=== PATIENT | male | born 1970 | race African-American/Black ===

== ENCOUNTER 2024-02-27 12:11 | Inpatient (IN) | payer OTHER ==
[2024-02-27 12:50] VITALS: BMI 30.8
[2024-02-27] MEDS ORDERED: LOPERAMIDE HCL 2 MG CAPSULE PO PRN (14:41)
[2024-02-27] MEDS ORDERED: POLYETHYLENE GLYCOL (HEALTHYLAX) 3350 17 GM PACKET PO PRN (14:41)
[2024-02-27] MEDS ORDERED: NICOTINE POLACRILEX 4 MG GUM BUC PRN (14:41)
[2024-02-27] MEDS ORDERED: IBUPROFEN 600 MG TABLET (FP) PO PRN (14:41)
[2024-02-27] MEDS ORDERED: IBUPROFEN 400 MG TABLET (FP) PO PRN (14:41)
[2024-02-27] MEDS ORDERED: BENZOCAINE/MENTHOL (CHLORASEPTIC ) LOZENGE MM PRN (14:41)
[2024-02-27] MEDS ORDERED: ACETAMINOPHEN 325 MG TABLET (FP) PO PRN (14:41)
[2024-02-27] MEDS ORDERED: ONDANSETRON *ODT* 4 MG TABLET SL PRN (14:41)
[2024-02-27] MEDS ORDERED: NALOXONE (NARCAN) HCL 4 MG/0.1 ML SPRAY NS PRN (14:41)
[2024-02-27] MEDS ORDERED: MAGNESIUM HYDROX 2400MG/30ML ORAL SUSPENSION 30 ML CUP PO PRN (14:41)
[2024-02-27] MEDS ORDERED: guaiFENesin 600 MG TABLET.ER (FP) PO PRN (14:41)
[2024-02-27] MEDS ORDERED: BISMUTH SUBSALICYLATE 524 MG/30 ML PO PRN (14:41)
[2024-02-27] MEDS ORDERED: MAG HYDROX/AL HYDROX/SIMETH 30 ML UNIT-DOSE CUP PO PRN (14:41)
[2024-02-27] MEDS ORDERED: DICYCLOMINE HCL 10 MG CAPSULE PO PRN (14:41)
[2024-02-27] MEDS ORDERED: BENZONATATE 200 MG CAPSULE PO PRN (14:41)
[2024-02-27] MEDS ORDERED: NICOTINE 21 MG/24 HOURS TOPICAL PATCH ONE (15:03)
[2024-02-27] MEDS ORDERED: PRENATAL VITAMINS W/ FOLIC ACID TABLET (FP) PO ONE (15:04)
[2024-02-27] MEDS: NICOTINE 21 MG/24 HOURS TOPICAL PATCH TD SCH (15:06)
[2024-02-27] MEDS: PRENATAL VITAMINS W/ FOLIC ACID TABLET (FP) PO SCH (15:07)
[2024-02-27] MEDS: chlordiazePOXIDE HCL 25 MG CAPSULE PO PRN (15:43)
[2024-02-27] MEDS: APIXABAN 5 MG TABLET PO SCH ×2 (15:50→22:20)
[2024-02-27] MEDS: chlordiazePOXIDE HCL 25 MG CAPSULE PO SCH (17:08)
[2024-02-27] MEDS: METHOCARBAMOL 500 MG TABLET PO PRN (17:14)
[2024-02-27] MEDS: THIAMINE 100 MG TABLET PO SCH (22:20)
[2024-02-27] MEDS: levETIRAcetam 500 MG TABLET (FP) PO SCH (22:20)
[2024-02-27] MEDS: amLODIPine BESYLATE 10 MG TABLET (FP) PO ONE (22:21)
[2024-02-27] MEDS: MELATONIN 5 MG TABLETS PO SCH (22:24)
[2024-02-28] MEDS: hydrOXYzine PAMOATE 25 MG CAPSULE (FP) PO PRN (05:29)
[2024-02-28] MEDS: ATORVASTATIN CA 10 MG TABLET (FP) PO SCH (10:26)
[2024-02-28] MEDS: LISINOPRIL 10 MG TABLET PO SCH (10:26)
[2024-02-28 16:16] LABS: CALCIUM 8.8 mg/dL (8.5-10.1)
[2024-02-28 16:17] LABS: BLOOD UREA NITROGEN 15.2 mg/dL (7-18); INR 1.04 (0.83-1.09); PROTHROMBIN TIME (PATIENT) 11.9 SEC (9.7-13.0)
[2024-02-28 16:19] LABS: HEMATOCRIT 42.7 % (35.4-49); HEMOGLOBIN 14.1 GM/dL (11.7-16.9); MCH 31.3 pg (25.7-33.7); MCHC 33.1 g/dl (32.0-35.9); MEAN CELL VOLUME 94.8 fl (80-96); MEAN PLT VOLUME 9.5 fl (7.5-11.1); PLATELET COUNT 171 10^3/uL (134-434); RBC 4.51 M/mm3 (4.00-5.60); RDW 15.1 % (11.9-15.9); WHITE BLOOD COUNT 4.5 K/mm3 (4.0-10.0)
[2024-02-28 16:22] LABS: BILIRUBIN,TOTAL 0.3 mg/dL (0.2-1); TOT PROT 6.1 g/dl (6.4-8.2)
[2024-02-29] MEDS: chlordiazePOXIDE HCL 25 MG CAPSULE PO SCH (05:28)
[2024-03-01] MEDS ORDERED: chlordiazePOXIDE HCL 10 MG CAPSULE PO PRN
[2024-03-01] MEDS: chlordiazePOXIDE HCL 10 MG CAPSULE PO SCH (05:34)
[2024-03-02] MEDS: chlordiazePOXIDE HCL 10 MG CAPSULE PO SCH (05:24)
[2024-03-03] MEDS: chlordiazePOXIDE HCL 10 MG CAPSULE PO ONE (05:21)
[2024-03-03] MEDS: MIRTAZAPINE 15 MG TABLET (FP) PO SCH (09:18)
[2024-03-03] MEDS: NALOXONE (NYS OPIOID OVERDOSE PROGRAM) 4 MG/0.1 ML SPRAY NS SCH (10:48)
[2024-03-03 16:42] VITALS: RESP 18
[2024-03-04 09:35] VITALS: BP 175/95; PULSE 71; TEMP 97.7
== END 2024-03-04 11:20 | disposition other institution (70) | DRG 773 ==
LOC: YASAS 12:11 → Y6N 14:54
PROVIDERS: ADMIT Allergy & Immunology; ATTEND Surgery
PROC: HZ2ZZZZ Detoxification Services for Substance Abuse Treatment (ICD-10-PCS; principal; 2024-02-27)
DX: F10.230 Alcohol dependence with withdrawal, uncomplicated (principal); F11.10 Opioid abuse, uncomplicated; F12.20 Cannabis dependence, uncomplicated; F17.210 Nicotine dependence, cigarettes, uncomplicated; F19.94 Other psychoactive substance use, unspecified with psychoactive substance-induced mood disorder; F19.982 Other psychoactive substance use, unspecified with psychoactive substance-induced sleep disorder; F19.980 Other psychoactive substance use, unspecified with psychoactive substance-induced anxiety disorder; I10 Essential (primary) hypertension; E78.5 Hyperlipidemia, unspecified; G40.909 Epilepsy, unspecified, not intractable, without status epilepticus; I48.91 Unspecified atrial fibrillation; Z86.19 Personal history of other infectious and parasitic diseases; Z56.0 Unemployment, unspecified; Z59.02 Unsheltered homelessness
CPT/HCPCS: 36415; 80053; 80177; 80305; 80307; 85027; 85610; 86593; 86780; 93005; 93010

== ENCOUNTER 2024-03-04 11:39 | Inpatient (IN) | payer OTHER ==
[2024-03-04] MEDS ORDERED: IBUPROFEN 600 MG TABLET (FP) PO PRN (16:30)
[2024-03-04] MEDS ORDERED: POLYETHYLENE GLYCOL (HEALTHYLAX) 3350 17 GM PACKET PO PRN (16:30)
[2024-03-04] MEDS ORDERED: MAG HYDROX/AL HYDROX/SIMETH 30 ML UNIT-DOSE CUP PO PRN (16:30)
[2024-03-04] MEDS ORDERED: hydrOXYzine PAMOATE 25 MG CAPSULE (FP) PO PRN (16:30)
[2024-03-04] MEDS ORDERED: ACETAMINOPHEN 325 MG TABLET (FP) PO PRN (16:30)
[2024-03-04] MEDS ORDERED: IBUPROFEN 400 MG TABLET (FP) PO PRN (16:30)
[2024-03-04] MEDS ORDERED: LOPERAMIDE HCL 2 MG CAPSULE PO PRN (16:30)
[2024-03-04] MEDS ORDERED: NALOXONE HCL 0.4 MG/ML VIAL IVPUSH PRN (16:30)
[2024-03-04] MEDS ORDERED: BENZOCAINE/MENTHOL (CHLORASEPTIC ) LOZENGE MM PRN (16:30)
[2024-03-04] MEDS ORDERED: guaiFENesin 600 MG TABLET.ER (FP) PO PRN (16:30)
[2024-03-04] MEDS ORDERED: BENZONATATE 200 MG CAPSULE PO PRN (16:30)
[2024-03-04] MEDS ORDERED: MAGNESIUM HYDROX 2400MG/30ML ORAL SUSPENSION 30 ML CUP PO PRN (16:30)
[2024-03-04] MEDS ORDERED: NALOXONE (NARCAN) HCL 4 MG/0.1 ML SPRAY NS PRN (16:30)
[2024-03-04] MEDS: METHOCARBAMOL 500 MG TABLET PO PRN (17:50)
[2024-03-04] MEDS: APIXABAN 5 MG TABLET PO SCH (22:48)
[2024-03-04] MEDS: MIRTAZAPINE 15 MG TABLET (FP) PO SCH (22:48)
[2024-03-04] MEDS: levETIRAcetam 500 MG TABLET (FP) PO SCH (22:48)
[2024-03-04] MEDS: THIAMINE 100 MG TABLET PO SCH (22:51)
[2024-03-04] MEDS: MELATONIN 5 MG TABLETS PO SCH (22:51)
[2024-03-05 06:25] VITALS: TEMP 97.7
[2024-03-05 09:02] VITALS: BP 130/67; PULSE 60; RESP 16
[2024-03-05] MEDS: PRENATAL VITAMINS W/ FOLIC ACID TABLET (FP) PO SCH (09:32)
[2024-03-05] MEDS: amLODIPine BESYLATE 10 MG TABLET (FP) PO SCH (09:34)
[2024-03-05] MEDS: ATORVASTATIN CA 10 MG TABLET (FP) PO SCH (09:34)
[2024-03-05] MEDS: LISINOPRIL 10 MG TABLET PO SCH (09:34)
[2024-03-05] MEDS: NALOXONE (NYS OPIOID OVERDOSE PROGRAM) 4 MG/0.1 ML SPRAY NS SCH (12:28)
[2024-03-05] MEDS ORDERED: NALOXONE (NYS OPIOID OVERDOSE PROGRAM) 4 MG/0.1 ML SPRAY NS SCH (13:45)
== END 2024-03-05 12:37 | disposition left against medical advice (07) | DRG 770 ==
LOC: YASAS 11:39 → Y3NR 11:40 → Y3W 03-05 11:14
PROVIDERS: ADMIT Psychiatry & Neurology Pain Medicine; ATTEND Psychiatry & Neurology Pain Medicine
PROC: HZ42ZZZ Group Counseling for Substance Abuse Treatment, Cognitive-Behavioral (ICD-10-PCS; principal; 2024-03-04)
DX: F10.20 Alcohol dependence, uncomplicated (principal); F11.20 Opioid dependence, uncomplicated; F12.20 Cannabis dependence, uncomplicated; F17.210 Nicotine dependence, cigarettes, uncomplicated; F41.9 Anxiety disorder, unspecified; F33.9 Major depressive disorder, recurrent, unspecified; F19.982 Other psychoactive substance use, unspecified with psychoactive substance-induced sleep disorder; I10 Essential (primary) hypertension; E78.5 Hyperlipidemia, unspecified; G40.909 Epilepsy, unspecified, not intractable, without status epilepticus; I48.91 Unspecified atrial fibrillation; Z79.01 Long term (current) use of anticoagulants; Z59.00 Homelessness unspecified
CPT/HCPCS: 36415; 86803

== ENCOUNTER 2024-07-06 21:09 | Inpatient (IN) | payer OTHER ==
[2024-07-06 21:32] VITALS: BMI 27.8
[2024-07-06] MEDS ORDERED: LOPERAMIDE HCL 2 MG CAPSULE PO PRN (22:14)
[2024-07-06] MEDS ORDERED: MAG HYDROX/AL HYDROX/SIMETH 30 ML UNIT-DOSE CUP PO PRN (22:14)
[2024-07-06] MEDS ORDERED: POLYETHYLENE GLYCOL (HEALTHYLAX) 3350 17 GM PACKET PO PRN (22:14)
[2024-07-06] MEDS ORDERED: ONDANSETRON *ODT* 4 MG TABLET SL PRN (22:14)
[2024-07-06] MEDS ORDERED: guaiFENesin 600 MG TABLET.ER (FP) PO PRN (22:14)
[2024-07-06] MEDS ORDERED: NICOTINE POLACRILEX 2 MG LOZENGE BC PRN (22:14)
[2024-07-06] MEDS ORDERED: hydrOXYzine PAMOATE 25 MG CAPSULE (FP) PO PRN (22:14)
[2024-07-06] MEDS ORDERED: MAGNESIUM HYDROX 2400MG/30ML ORAL SUSPENSION 30 ML CUP PO PRN (22:14)
[2024-07-06] MEDS ORDERED: NALOXONE (NARCAN) HCL 4 MG/0.1 ML SPRAY NS PRN (22:14)
[2024-07-06] MEDS ORDERED: NICOTINE POLACRILEX 2 MG GUM BUC PRN (22:14)
[2024-07-06] MEDS ORDERED: BENZONATATE 200 MG CAPSULE PO PRN (22:14)
[2024-07-06] MEDS ORDERED: BENZOCAINE/MENTHOL (CHLORASEPTIC ) LOZENGE MM PRN (22:14)
[2024-07-06] MEDS ORDERED: DICYCLOMINE HCL 10 MG CAPSULE PO PRN (22:14)
[2024-07-06] MEDS ORDERED: chlordiazePOXIDE HCL 25 MG CAPSULE PO PRN (22:21)
[2024-07-06] MEDS ORDERED: chlordiazePOXIDE HCL 25 MG CAPSULE ONE (23:03)
[2024-07-06] MEDS ORDERED: levETIRAcetam 500 MG TABLET (FP) PO ONE (23:04)
[2024-07-06] MEDS ORDERED: MELATONIN 5 MG TABLETS ONE (23:04)
[2024-07-06] MEDS: chlordiazePOXIDE HCL 25 MG CAPSULE PO SCH (23:08)
[2024-07-06] MEDS: levETIRAcetam 500 MG TABLET (FP) PO SCH (23:08)
[2024-07-06] MEDS: amLODIPine BESYLATE 5 MG TABLET (FP) PO ONE (23:43)
[2024-07-06] MEDS: ASPIRIN COATED 81 MG TABLET.EC PO ONE (23:48)
[2024-07-06] MEDS: ASPIRIN 325 MG ENTERIC COATED TABLET (FP) PO ONE (23:49)
[2024-07-07] MEDS: PRENATAL VITAMINS W/ FOLIC ACID TABLET (FP) PO SCH (10:19)
[2024-07-07] MEDS: ASPIRIN COATED 81 MG TABLET.EC PO SCH (10:20)
[2024-07-07 11:27] LABS: HEMATOCRIT 40.6 % (40.1-51.0); HEMOGLOBIN 13.7 g/dL (13.7-17.5); MCHC 33.7 g/dl (32.3-36.5); MEAN CELL VOLUME 92.9 fl (79.0-92.2); MEAN PLT VOLUME 11.2 fl (9.4-12.4); PLATELET COUNT 175 x10^3/uL (163-337); RDW 13.5 % (12.2-16.1)
[2024-07-07 11:29] LABS: POTASSIUM 3.5 mmol/L (3.5-5.1)
[2024-07-07 11:37] LABS: BLOOD UREA NITROGEN 15.9 mg/dL (7-18); CALCIUM 9.2 mg/dL (8.5-10.1)
[2024-07-07 11:42] LABS: CREATININE 0.9 mg/dL (0.55-1.3)
[2024-07-07 11:43] LABS: BILIRUBIN,TOTAL 0.6 mg/dL (0.2-1)
[2024-07-07] MEDS: LISINOPRIL 10 MG TABLET PO SCH (14:48)
[2024-07-07] MEDS: APIXABAN 5 MG TABLET PO ONE (14:48)
[2024-07-07] MEDS: ATORVASTATIN CA 10 MG TABLET (FP) PO SCH (14:48)
[2024-07-07] MEDS: LIDOCAINE 5% TOPICAL PATCH TP SCH (15:50)
[2024-07-07] MEDS: THIAMINE 100 MG TABLET PO SCH (22:21)
[2024-07-07] MEDS: APIXABAN 5 MG TABLET PO SCH (22:21)
[2024-07-07] MEDS: MELATONIN 5 MG TABLETS PO SCH (22:21)
[2024-07-07] MEDS: LIDOCAINE PATCH REMOVAL MC SCH (22:23)
[2024-07-08] MEDS: chlordiazePOXIDE HCL 25 MG CAPSULE PO SCH (05:24)
[2024-07-08] MEDS: VITAMINS A AND D TOPICAL OINTMENT TP SCH (17:30)
[2024-07-08] MEDS: MIRTAZAPINE 15 MG TABLET (FP) PO SCH (22:17)
[2024-07-08] MEDS: METHOCARBAMOL 500 MG TABLET PO PRN (23:30)
[2024-07-08] MEDS: ACETAMINOPHEN 325 MG TABLET (FP) PO PRN (23:30)
[2024-07-09] MEDS ORDERED: chlordiazePOXIDE HCL 10 MG CAPSULE PO PRN
[2024-07-09] MEDS: chlordiazePOXIDE HCL 10 MG CAPSULE PO SCH (05:55)
[2024-07-09 12:30] VITALS: BP 149/85; PULSE 63; RESP 18; TEMP 97.3
[2024-07-10] MEDS ORDERED: chlordiazePOXIDE HCL 10 MG CAPSULE PO SCH (05:00)
[2024-07-11] MEDS ORDERED: chlordiazePOXIDE HCL 10 MG CAPSULE PO ONE (05:00)
== END 2024-07-09 12:45 | disposition home or self-care (01) | DRG 774 ==
LOC: YASAS 21:09 → Y3N 22:46
PROVIDERS: ADMIT Allergy & Immunology; ATTEND Allergy & Immunology
PROC: HZ2ZZZZ Detoxification Services for Substance Abuse Treatment (ICD-10-PCS; principal; 2024-07-06)
DX: F10.230 Alcohol dependence with withdrawal, uncomplicated (principal); F14.20 Cocaine dependence, uncomplicated; F12.20 Cannabis dependence, uncomplicated; F17.210 Nicotine dependence, cigarettes, uncomplicated; E78.5 Hyperlipidemia, unspecified; G47.00 Insomnia, unspecified; I48.91 Unspecified atrial fibrillation; I10 Essential (primary) hypertension; R26.89 Other abnormalities of gait and mobility; Z86.73 Personal history of transient ischemic attack (TIA), and cerebral infarction without residual deficits; Z79.01 Long term (current) use of anticoagulants; Z56.0 Unemployment, unspecified; Z59.00 Homelessness unspecified
CPT/HCPCS: 36415; 80053; 80305; 80307; 85027; 86593; 86780; 93005; 93010

== ENCOUNTER 2024-08-10 12:02 | Inpatient (IN) | payer OTHER ==
[2024-08-10 12:38] VITALS: BMI 25.7
[2024-08-10] MEDS ORDERED: chlordiazePOXIDE HCL 25 MG CAPSULE PO PRN (13:08)
[2024-08-10] MEDS ORDERED: LOPERAMIDE HCL 2 MG CAPSULE PO PRN (13:08)
[2024-08-10] MEDS ORDERED: BENZOCAINE/MENTHOL (CHLORASEPTIC ) LOZENGE MM PRN (13:08)
[2024-08-10] MEDS ORDERED: ACETAMINOPHEN 325 MG TABLET (FP) PO PRN (13:08)
[2024-08-10] MEDS ORDERED: BENZONATATE 200 MG CAPSULE PO PRN (13:08)
[2024-08-10] MEDS ORDERED: MAG HYDROX/AL HYDROX/SIMETH 30 ML UNIT-DOSE CUP PO PRN (13:08)
[2024-08-10] MEDS ORDERED: MAGNESIUM HYDROX 2400MG/30ML ORAL SUSPENSION 30 ML CUP PO PRN (13:08)
[2024-08-10] MEDS ORDERED: POLYETHYLENE GLYCOL (HEALTHYLAX) 3350 17 GM PACKET PO PRN (13:08)
[2024-08-10] MEDS ORDERED: NALOXONE (NARCAN) HCL 4 MG/0.1 ML SPRAY NS PRN (13:08)
[2024-08-10] MEDS ORDERED: NICOTINE POLACRILEX 2 MG GUM BUC PRN (13:08)
[2024-08-10] MEDS ORDERED: DICYCLOMINE HCL 10 MG CAPSULE PO PRN (13:08)
[2024-08-10] MEDS ORDERED: guaiFENesin 600 MG TABLET.ER (FP) PO PRN (13:08)
[2024-08-10] MEDS ORDERED: IBUPROFEN 600 MG TABLET (FP) PO PRN (13:08)
[2024-08-10] MEDS ORDERED: IBUPROFEN 400 MG TABLET (FP) PO PRN (13:08)
[2024-08-10] MEDS ORDERED: ONDANSETRON *ODT* 4 MG TABLET SL PRN (13:08)
[2024-08-10] MEDS ORDERED: BISMUTH SUBSALICYLATE 524 MG/30 ML PO PRN (13:08)
[2024-08-10] MEDS: METHOCARBAMOL 500 MG TABLET PO PRN (15:59)
[2024-08-10] MEDS: hydrOXYzine PAMOATE 25 MG CAPSULE (FP) PO PRN (16:00)
[2024-08-10] MEDS: chlordiazePOXIDE HCL 25 MG CAPSULE PO SCH (18:14)
[2024-08-10] MEDS: THIAMINE 100 MG TABLET PO SCH (23:04)
[2024-08-10] MEDS: MELATONIN 5 MG TABLETS PO SCH (23:04)
[2024-08-10] MEDS: levETIRAcetam 500 MG TABLET (FP) PO SCH (23:04)
[2024-08-10] MEDS: APIXABAN 5 MG TABLET PO SCH (23:04)
[2024-08-10] MEDS: ATORVASTATIN CA 10 MG TABLET (FP) PO SCH (23:04)
[2024-08-10] MEDS: BRIMONIDINE TARTRATE 0.2% OPHTHALMIC 5 ML BOTTLE OU SCH (23:34)
[2024-08-10] MEDS: DORZOLAMIDE HCL/TIMOLOL OPHTHALMIC SOLUTION 10 ML BOTTLE OU SCH (23:34)
[2024-08-11] MEDS: PRENATAL VITAMINS W/ FOLIC ACID TABLET (FP) PO SCH (10:12)
[2024-08-11] MEDS: LISINOPRIL 10 MG TABLET PO SCH (10:13)
[2024-08-11 15:00] LABS: HEMATOCRIT 42.9 % (40.1-51.0); MCHC 32.6 g/dl (32.3-36.5); MEAN CELL VOLUME 94.1 fl (79.0-92.2); MEAN PLT VOLUME 11.2 fl (9.4-12.4); PLATELET COUNT 208 x10^3/uL (163-337); RDW 12.4 % (12.2-16.1)
[2024-08-11 15:03] LABS: CHLORIDE 111 mmol/L (98-107); POTASSIUM 4.3 mmol/L (3.5-5.1); SODIUM 144 mmol/L (136-145)
[2024-08-11 15:08] LABS: ALBUMIN 3.1 g/dl (3.4-5.0); ANION GAP 5 mmol/L (4-13); BLOOD UREA NITROGEN 18.5 mg/dL (7-18); CO2 28 mmol/L (21-32); GLUCOSE,RANDOM 87 mg/dL (74-106)
[2024-08-11 15:11] LABS: CREATININE 0.9 mg/dL (0.55-1.3); SGOT/AST 17 U/L (15-37); SGPT/ALT 36 U/L (13-61)
[2024-08-11 15:12] LABS: BILIRUBIN,TOTAL 0.4 mg/dL (0.2-1)
[2024-08-11 15:13] LABS: ALK PHOS 138 U/L (45-117); CALCIUM 8.6 mg/dL (8.5-10.1)
[2024-08-12] MEDS: chlordiazePOXIDE HCL 25 MG CAPSULE PO SCH (05:42)
[2024-08-12] MEDS ORDERED: cloNIDine HCL 0.1 MG TABLET PO PRN (11:08)
[2024-08-12] MEDS: HYDROCHLOROTHIAZIDE 25 MG TABLET (FP) PO SCH (11:42)
[2024-08-12] MEDS: MIRTAZAPINE 15 MG TABLET (FP) PO SCH (22:52)
[2024-08-13] MEDS ORDERED: chlordiazePOXIDE HCL 10 MG CAPSULE PO PRN
[2024-08-13] MEDS: chlordiazePOXIDE HCL 10 MG CAPSULE PO SCH (05:54)
[2024-08-14] MEDS: chlordiazePOXIDE HCL 10 MG CAPSULE PO SCH (05:49)
[2024-08-15] MEDS: chlordiazePOXIDE HCL 10 MG CAPSULE PO ONE (06:00)
[2024-08-15 09:47] VITALS: BP 142/91; PULSE 88; RESP 20; TEMP 97.5
== END 2024-08-15 10:15 | disposition home or self-care (01) | DRG 774 ==
LOC: YASAS 12:02 → Y3N 14:18
PROVIDERS: ADMIT Allergy & Immunology; ATTEND Allergy & Immunology
PROC: HZ2ZZZZ Detoxification Services for Substance Abuse Treatment (ICD-10-PCS; principal; 2024-08-10)
DX: F10.230 Alcohol dependence with withdrawal, uncomplicated (principal); F14.10 Cocaine abuse, uncomplicated; F12.20 Cannabis dependence, uncomplicated; F17.210 Nicotine dependence, cigarettes, uncomplicated; F19.24 Other psychoactive substance dependence with psychoactive substance-induced mood disorder; E78.5 Hyperlipidemia, unspecified; G47.00 Insomnia, unspecified; H40.9 Unspecified glaucoma; I10 Essential (primary) hypertension; I48.91 Unspecified atrial fibrillation; Z79.01 Long term (current) use of anticoagulants; R56.9 Unspecified convulsions; Z59.00 Homelessness unspecified; Z56.0 Unemployment, unspecified
CPT/HCPCS: 36415; 80053; 80305; 80307; 85027; 86593; 86780; 93005; 93010

== ENCOUNTER 2025-01-15 06:44 | Inpatient (IN) | payer OTHER ==
[2025-01-15 07:01] VITALS: BMI 27.6
[2025-01-15] MEDS ORDERED: MAG HYDROX/AL HYDROX/SIMETH 30 ML UNIT-DOSE CUP PO PRN (07:41)
[2025-01-15] MEDS ORDERED: BISMUTH SUBSALICYLATE 524 MG/30 ML PO PRN (07:41)
[2025-01-15] MEDS ORDERED: DICYCLOMINE HCL 10 MG CAPSULE PO PRN (07:41)
[2025-01-15] MEDS ORDERED: NICOTINE POLACRILEX 2 MG GUM BUC PRN (07:41)
[2025-01-15] MEDS ORDERED: IBUPROFEN 400 MG TABLET (FP) PO PRN (07:41)
[2025-01-15] MEDS ORDERED: NALOXONE (NARCAN) HCL 4 MG/0.1 ML SPRAY NS PRN (07:41)
[2025-01-15] MEDS ORDERED: BENZOCAINE/MENTHOL (CHLORASEPTIC ) LOZENGE MM PRN (07:41)
[2025-01-15] MEDS ORDERED: guaiFENesin 600 MG TABLET.ER (FP) PO PRN (07:41)
[2025-01-15] MEDS ORDERED: POLYETHYLENE GLYCOL (HEALTHYLAX) 3350 17 GM PACKET PO PRN (07:41)
[2025-01-15] MEDS ORDERED: LOPERAMIDE HCL 2 MG CAPSULE PO PRN (07:41)
[2025-01-15] MEDS ORDERED: METHOCARBAMOL 500 MG TABLET PO PRN (07:41)
[2025-01-15] MEDS ORDERED: BENZONATATE 200 MG CAPSULE PO PRN (07:41)
[2025-01-15] MEDS ORDERED: MAGNESIUM HYDROX 2400MG/30ML ORAL SUSPENSION 30 ML CUP PO PRN (07:41)
[2025-01-15] MEDS ORDERED: ONDANSETRON *ODT* 4 MG TABLET SL PRN (07:41)
[2025-01-15] MEDS ORDERED: FLU VACC TS2025-26(6MOS UP)/PF 45 MCG/0.5 ML SYRINGE IM ONE (08:50)
[2025-01-15] MEDS ORDERED: levETIRAcetam 500 MG TABLET (FP) PO ONE (08:59)
[2025-01-15] MEDS ORDERED: BUPRENORPHINE/NALOXONE 0.5 MG/0.125 MG FILM ONE (08:59)
[2025-01-15] MEDS: BUPRENORPHINE/NALOXONE 0.5 MG/0.125 MG FILM SL ONE ×2 (09:09→22:27)
[2025-01-15] MEDS: levETIRAcetam 500 MG TABLET (FP) PO SCH (09:09)
[2025-01-15] MEDS ORDERED: DORZOLAMIDE OU SCH (10:00)
[2025-01-15] MEDS ORDERED: TIMOLOL OU SCH (10:00)
[2025-01-15] MEDS ORDERED: MIRTAZAPINE 15 MG TABLET (FP) PO SCH ×2 (10:00→22:00)
[2025-01-15] MEDS ORDERED: [UNRECOGNIZED DRUG - OTHER] OU SCH (10:00)
[2025-01-15] MEDS: PRENATAL VITAMINS W/ FOLIC ACID TABLET (FP) PO SCH (10:07)
[2025-01-15] MEDS: NICOTINE 14 MG/24 HOURS TOPICAL PATCH TD SCH (10:08)
[2025-01-15] MEDS: ATORVASTATIN CA 10 MG TABLET (FP) PO SCH (10:10)
[2025-01-15] MEDS: LISINOPRIL 20 MG TABLET PO SCH (10:10)
[2025-01-15] MEDS ORDERED: TIMOLOL 0.5% OPHTHALMIC SOL 5 ML BOTTLE OU SCH (12:00)
[2025-01-15] MEDS ORDERED: DORZOLAMIDE 2% HCL OPHTHALMIC SOLUTION 10 ML BOTTLE OU SCH (12:00)
[2025-01-15] MEDS: DORZOLAMIDE HCL/TIMOLOL OPHTHALMIC SOLUTION 10 ML BOTTLE OU SCH (12:45)
[2025-01-15] MEDS: FLU VACC TS2025-26(6MOS UP)/PF 45 MCG/0.5 ML SYRINGE IM ONE (12:46)
[2025-01-15] MEDS: BRIMONIDINE TARTRATE 0.2% OPHTHALMIC 5 ML BOTTLE OU SCH (13:46)
[2025-01-15] MEDS: ACAMPROSATE CALCIUM 333 MG TABLET.DR PO SCH (13:48)
[2025-01-15] MEDS: BACLOFEN 10 MG TABLET (FP) PO PRN (17:12)
[2025-01-15] MEDS: MIRTAZAPINE 15 MG TABLET (FP) PO SCH (22:25)
[2025-01-15] MEDS: THIAMINE 100 MG TABLET PO SCH (22:25)
[2025-01-15] MEDS: MELATONIN 5 MG TABLETS PO SCH (22:25)
[2025-01-16] MEDS: BUPRENORPHINE/NALOXONE 0.5 MG/0.125 MG FILM SL SCH (10:21)
[2025-01-16 12:37] LABS: MCHC 33.2 g/dl (32.3-36.5); MEAN CELL VOLUME 92.9 fl (79.0-92.2); MEAN PLT VOLUME 11.5 fl (9.4-12.4); RDW 13.4 % (12.2-16.1)
[2025-01-16 12:53] LABS: GLUCOSE,RANDOM 100.0 mg/dL (74-106)
[2025-01-16 12:54] LABS: TOT PROT 6.5 g/dl (6.4-8.2)
[2025-01-16 12:55] LABS: CO2 25.0 mmol/L (21-32)
[2025-01-16 12:56] LABS: ALK PHOS 105.0 U/L (40-150)
[2025-01-16 12:59] LABS: CREATININE 1.03 mg/dL (0.55-1.3); SGOT/AST 23.0 U/L (5-34); SGPT/ALT 21.0 U/L (0-55)
[2025-01-16 13:04] LABS: SYPHILIS W/ RPR CONF REACTIVE (NONREACTIVE)
[2025-01-16 14:36] LABS: RPR REFLEX REACTIVE 1:1 (NONREACTIVE)
[2025-01-17] MEDS: BUPRENORPHINE/NALOXONE 2 MG/0.5 MG FILM PACKET SL SCH (09:24)
[2025-01-18] MEDS: BUPRENORPHINE/NALOXONE 4 MG/1 MG FILM PACKET SL SCH (10:17)
[2025-01-18] MEDS: hydrOXYzine PAMOATE 25 MG CAPSULE (FP) PO PRN (15:22)
[2025-01-18] MEDS: IBUPROFEN 600 MG TABLET (FP) PO PRN (17:14)
[2025-01-18] MEDS: ACETAMINOPHEN 325 MG TABLET (FP) PO PRN (20:29)
[2025-01-18] MEDS: traZODone HCL 50 MG TABLET (FP) PO SCH (22:14)
[2025-01-19 10:12] VITALS: BP 148/92; PULSE 67; RESP 16; TEMP 97.6
[2025-01-19] MEDS: BUPRENORPHINE/NALOXONE 8 MG/2 MG FILM PACKET SL SCH (10:39)
[2025-01-20] MEDS ORDERED: BUPRENORPHINE/NALOXONE 8 MG/2 MG FILM PACKET SL SCH (10:00)
== END 2025-01-19 11:56 | disposition home or self-care (01) | DRG 773 ==
LOC: YASAS 06:44 → Y6N 08:58
PROVIDERS: ADMIT Allergy & Immunology; ATTEND Student in an Organized Health Care Education/Training Program
PROC: HZ2ZZZZ Detoxification Services for Substance Abuse Treatment (ICD-10-PCS; principal; 2025-01-15)
DX: F11.23 Opioid dependence with withdrawal (principal); F10.230 Alcohol dependence with withdrawal, uncomplicated; F14.20 Cocaine dependence, uncomplicated; F12.20 Cannabis dependence, uncomplicated; F17.210 Nicotine dependence, cigarettes, uncomplicated; F19.282 Other psychoactive substance dependence with psychoactive substance-induced sleep disorder; F19.280 Other psychoactive substance dependence with psychoactive substance-induced anxiety disorder; F19.24 Other psychoactive substance dependence with psychoactive substance-induced mood disorder; G47.00 Insomnia, unspecified; E78.5 Hyperlipidemia, unspecified; I10 Essential (primary) hypertension; Z59.00 Homelessness unspecified
CPT/HCPCS: 36415; 80053; 80305; 80307; 85027; 86593; 86780; 90656; 93005; 93010; J0475